=== PATIENT | female | born 1965 | race Two or more races ===

== ENCOUNTER → 2022-07-20 | Emergency (ER) | payer OTHER ==
[~2022-07-20] VITALS: Ht 157.5 cm; Wt 83.9 kg
[~2022-07-20] MED LIST: CARDIZEM CD180 M1; COZAAR100 MG; KETO10TA2 PO; LIPITOR20 MG; PAXIL20 MG; SINGULAIR10 MG; TOPROL XL50 M1
== END | disposition home or self-care (01) ==
LOC: ER 01:34
DX: R10.9 Unspecified abdominal pain (principal); Z88.2 Allergy status to sulfonamides; Z88.8 Allergy status to other drugs, medicaments and biological substances; R11.2 Nausea with vomiting, unspecified; I10 Essential (primary) hypertension

== ENCOUNTER 2023-06-09 08:40 | Outpatient (CLI) | payer OTHER | END 2023-06-09 08:51 | disposition home or self-care (01) | LOC: RAD 08:40 | PROVIDERS: ATTEND Urology | DX: N20.0 Calculus of kidney (principal); Z88.2 Allergy status to sulfonamides; Z91.018 Allergy to other foods; Z91.048 Other nonmedicinal substance allergy status ==

== ENCOUNTER 2024-09-16 01:25 | Emergency (ER) | payer OTHER ==
[~2024-09-16] VITALS: Ht 157.5 cm; Wt 85.3 kg
[2024-09-16] MEDS ORDERED: POVIDONE-IODINE 118 ML BOTT TOP ONE (04:01)
[2024-09-16] MEDS ORDERED: BACITRACIN-NEOMYCIN-POLYMYXIN 0.9 GM PACKET TOP ONE (04:02)
[2024-09-16] MEDS ORDERED: CEFTRIAXONE SODIUM 1,000 MG VIAL IV STA (04:18)
[2024-09-16] MEDS ORDERED: CEFTRIAXONE SODIUM 1,000 MG VIAL ONE (04:21)
[2024-09-16 05:20] LABS: HEMOGLOBIN 13.9 g/dL (12.0-15.00); MEAN CELL VOLUME 94.5 fL (80.00-100.00); MEAN CORPUSCULAR HGB CONC 33.8 g/dl (32.0-36.0); PLATELET COUNT 338 K/uL (150-450); RED BLOOD COUNT 4.34 M/uL (4.00-6.00); RED CELL DISTRIBUTION WIDTH 13.2 % (11.5-14.5)
[2024-09-16 05:38] LABS: CALCIUM 8.9 mg/dL (8.5-10.1); CREATININE SERUM 0.72 mg/dL (0.55-1.02); GFR 82.62; POTASSIUM 3.83 mEq/L (3.5-5.1)
[2024-09-16] MEDS ORDERED: AMOX-CLAV 875-1 EACH PO (07:50)
[2024-09-16] MEDS ORDERED: MUPIROCIN1 G1 TOP (07:50)
== END 2024-09-16 07:58 ==
LOC: ER 01:28
PROVIDERS: General Practice
DX: S60.322A Blister (nonthermal) of left thumb, initial encounter (principal); X58.XXXA Exposure to other specified factors, initial encounter; Y93.89 Activity, other specified; Y92.89 Other specified places as the place of occurrence of the external cause; Y99.9 Unspecified external cause status; Z88.2 Allergy status to sulfonamides; Z88.8 Allergy status to other drugs, medicaments and biological substances